=== PATIENT | female | born 1975 | race Caucasian/White ===

== ENCOUNTER 2017-02-17 16:57 | Emergency (ER) | payer OTHER ==
[~2017-02-17] VITALS: Ht 160 cm; Wt 74.8 kg
[2017-02-17 17:15] VITALS: BP 156/72
[2017-02-17] MEDS ORDERED: HYDROCODONE/APAP 5/325MG TABLET. PO ONE (17:45)
[2017-02-17] MEDS ORDERED: CLIN-44 PO (17:47)
[2017-02-17] MEDS ORDERED: HYDR-971 PO (17:47)
[2017-02-17] MEDS ORDERED: ONDA4TAB10 SL (17:48)
--- NOTE | 2017-02-17 17:48 | PHYS DOC ---
Past Medical History Past Medical History: Other Additional Past Medical Histor: CROHN'S Past Surgical History: Cholecystectomy, Tubal ligation Additional Past Surgical Histo: BOWEL RESECTION, IUD, JAW Alcohol Use: None Drug Use: None Adult General Chief Complaint Chief Complaint: FACE PAIN HPI HPI Patient is a 41 year old female presents emergency department stating that she has having left lower dental pain and discomfort with swollen child. Patient states that she has had fever, chills with some nausea and vomiting and generalized body aches and discomfort. She states this is been going on for the last 3 days. Patient states that she's been taken ibuprofen with minimal relief. Patient denies having a dentist at the current time. She denies any further symptoms. Review of Systems Review of Systems Constitutional: fever Eyes: Denies change in visual acuity, redness, or eye pain [] HENT: Denies nasal congestion or sore throat. Left lower jaw pain with swelling Respiratory: Denies cough or shortness of breath [] Cardiovascular: No additional information not addressed in HPI [] GI: Denies abdominal pain, nausea, vomiting, bloody stools or diarrhea [] : Denies dysuria or hematuria [] Musculoskeletal: Denies back pain or joint pain [] Integument: Denies rash or skin lesions [] Neurologic: Denies headache, focal weakness or sensory changes [] Current Medications Current Medications Current Medications Medications (Trade) Dose Ordered Sig/Ewa Start Time Stop Time Status Last Admin Dose Admin Acetaminophen/ Hydrocodone Bitart (Lortab 5/325) 1 tab 1X ONCE 02/17/17 17:45 02/17/17 17:46 Allergies Allergies Allergies Coded Allergies Type Severity Reaction Last Updated Verified Penicillins Allergy Severe "RESPIRATORY ARREST" 02/17/17 No Physical Exam Physical Exam Constitutional: Well developed, well nourished, no acute distress, non-toxic appearance. [] HENT: Normocephalic, atraumatic, bilateral external ears normal, oropharynx moist, no oral exudates, nose normal. Bilateral tympanic membranes appear to be normal. Patient with a tooth that appears to have been decayed at approximately the #20-21 tooth. Gumline appears to be swollen and very tender to palpation. She does appear to have a ping-pong size knot on the outer part of the gumline/ jaw area. Redness noted on the outer part of the jaw. Eyes: PERRLA, EOMI, conjunctiva normal, no discharge. [] Neck: Normal range of motion, no tenderness, supple, no stridor. [] Cardiovascular:Heart rate regular rhythm, no murmur [] Lungs & Thorax: Bilateral breath sounds clear to auscultation [] Skin: Warm, dry, no erythema, no rash. [] Back: No tenderness Extremities: No tenderness, no cyanosis, no clubbing, ROM intact, no edema. [] Neurologic: Alert and oriented X 3, normal motor function, normal sensory function, no focal deficits noted. [] Psychologic: Affect normal, judgement normal, mood normal. [] Current Patient Data Vital Signs Vital Signs Date Time Temp Pulse Resp B/P Pulse Ox O2 Delivery O2 Flow Rate FiO2 02/17/17 17:15 98.0 100 18 99 Room Air 98.0 EKG EKG [] Radiology/Procedures Radiology/Procedures [] Course & Med Decision Making Course & Med Decision Making Pertinent Labs and Imaging studies reviewed. (See chart for details) test was negative. Patient will be placed on clindamycin. She'll be provided with hydrocodone for severe pain and discomfort with recommendations to continue using ibuprofen for fever chills or generalized body aches and discomfort. Patient will be provided with a dental list in which she can follow- up with a dentist. Also recommended her checking with her dental insurance for a dentist that is covered with her insurance. Patient was provided with signs and symptoms to return back to emergency department. Patient will be discharged home in stable condition. [] Dragon Disclaimer Dragon Disclaimer This electronic medical record was generated, in whole or in part, using a voice recognition dictation system. Departure Departure Impression: Primary Impression: Dental abscess Disposition: 01 HOME, SELF-CARE Condition: STABLE Referrals: NO PCP (PCP) Patient Instructions: Dental Abscess Additional Instructions: Home to rest Medication as prescribed Tylenol or Ibuprofen for fever, chills or generalized body aches [place] will cause drowsiness do not take any be alert and oriented. Do not take extra Tylenol with this medication. Follow-up with the dentist within the next week. Follow-up with primary care physician next 3-5 days. Return back to emergency department sign symptoms of become worse. Scripts Ondansetron (Zofran Odt)4 Mg Tab.rapdis1 Tab SL Q8HRS PRN NAUSEA/VOMITING #10 TAB Prov:CYRIL FLORENTINO APRN 02/17/17 Clindamycin Hcl 150 Mg Capsule3 Cap PO TID 10 Days Prov:CYRIL FLORENTINO APRN 02/17/17 Hydrocodone/Apap 5-325 ([place] 5-325 Tablet)1 Each Tablet1 Tab PO PRN Q6HRS PRN PAIN #20 TAB Prov:CYRIL FLORENTINO APRN 02/17/17 CYRIL FLORENTINO APRN Feb 17, 2017 17:48
== END 2017-02-17 18:00 | disposition home or self-care (01) ==
LOC: ER 16:57
DX: K04.7 Periapical abscess without sinus (principal); R11.2 Nausea with vomiting, unspecified; M79.1 Myalgia; Z88.0 Allergy status to penicillin
CPT/HCPCS: 81025; 99283